=== PATIENT | female | born 1985 | race Caucasian/White ===

== ENCOUNTER 2018-09-01 05:25 | Inpatient (IN) | payer BC ==
[2018-09-01] MEDS ORDERED: Ondansetron PF 4 MG/2 ML Vial IVP PRN ×3 (05:27→08:55)
[2018-09-01] MEDS ORDERED: Promethazine HCl 25 MG/ML VIAL IM PRN ×2 (05:27→08:13)
[2018-09-01] MEDS ORDERED: Butorphanol Tartrate 1 MG/ML VIAL SLOW IVP PRN (05:27)
[2018-09-01] MEDS ORDERED: Bicitra 30 ML UDCUP PO SCH (05:45)
[2018-09-01] MEDS ORDERED: CEFAZOLIN 2 GM/50 ML BAG IVPB SCH (05:45)
[2018-09-01 05:54] VITALS: BMI 34.8
[2018-09-01 06:11] LABS: Mean Corpuscular HGB CONC 34.8 g/dL (32.0-36.0); Mean Corpuscular Hemoglobin 30.2 pg (27.0-31.0); Mean Corpuscular Volume 86.9 fL (78.0-98.0); Mean Platelet Volume 9.7 fL (7.4-10.4); Platelet Count 183 thou/uL (130-400); RBC Distribution Width 12.2 % (11.5-14.5); Red Blood Cell (RBC) Count 4.64 mill/uL (4.20-5.40); White Blood Cell (WBC) Count 7.5 thou/uL (4.8-10.8)
[2018-09-01] MEDS: Lactated Ringer's 1,000 ML IV SCH ×2 (06:20→07:24)
[2018-09-01 07:03] LABS: Syphilis Antibody Nonreactive (Nonreactive); Syphilis Antibody Index 0.06 S/CO (<1.00 Non-Reactive)
[2018-09-01] MEDS ORDERED: Fentanyl 100 MCG/2 ML VIAL ONE (07:13)
[2018-09-01] MEDS ORDERED: Morphine PF 1 MG/ML SYR ONE (07:13)
[2018-09-01] MEDS ORDERED: PHENYLEPHRINE-NS 100 MCG/ML 10 ML SYRINGE ONE ×2 (07:14→16:19)
[2018-09-01] MEDS ORDERED: Oxytocin 10 UNITS/ML VIAL ONE (07:14)
[2018-09-01] MEDS ORDERED: Ketorolac Tromethamine 30 MG/ML VIAL ONE ×2 (07:14→16:19)
[2018-09-01] MEDS ORDERED: Ondansetron PF 4 MG/2 ML Vial ONE ×2 (07:14→16:19)
[2018-09-01] MEDS ORDERED: Dexamethasone 4 mg/ml Vial ONE (07:14)
[2018-09-01] MEDS ORDERED: ePHEDrine/0.9% NaCl/PF SYRINGE 50 mg/10 ml ONE ×2 (07:14→16:19)
[2018-09-01] MEDS ORDERED: Lidocaine 2% PF Inj 2 ML VIAL ONE (07:23)
[2018-09-01] MEDS ORDERED: Naloxone HCl 0.4 mg/ml Vial IVP PRN ×2 (08:13)
[2018-09-01] MEDS ORDERED: L&D-Morphine 4 MG/ML VIAL SLOW IVP PRN (08:13)
[2018-09-01] MEDS ORDERED: Promethazine HCl 25 MG SUPP PR PRN (08:13)
[2018-09-01] MEDS ORDERED: Ketorolac Tromethamine 30 MG/ML VIAL IVP PRN (08:13)
[2018-09-01] MEDS ORDERED: Naloxone HCl 0.4 mg/ml Vial IV PRN (08:13)
[2018-09-01] MEDS ORDERED: HYDROmorphone 2 MG/ML VIAL SLOW IVP PRN (08:13)
[2018-09-01] MEDS ORDERED: Ondansetron HCl/PF 4 MG/2 ML Vial IVP PRN (08:13)
[2018-09-01] MEDS ORDERED: diphenhydrAMINE 50 MG/ML VIAL IVP PRN (08:13)
[2018-09-01] MEDS ORDERED: Eucerin (Mineral Oil/Petrolatum,White) 30 gm Jar TOP PRN (08:13)
[2018-09-01] MEDS ORDERED: Communication Order-Pharmacy FS SCH (08:15)
[2018-09-01] MEDS ORDERED: Ketorolac Tromethamine 30 MG/ML VIAL IVP SCH (08:15)
[2018-09-01] MEDS ORDERED: diphenhydrAMINE 25 MG CAP PO PRN (08:55)
[2018-09-01] MEDS ORDERED: Misoprostol 200 MCG TAB PR PRN (08:55)
[2018-09-01] MEDS ORDERED: Adacel (T-DAP) 0.5 ML SYRINGE IM ONE (08:55)
[2018-09-01] MEDS ORDERED: Lanolin Ointment 7 GM TUBE TOP PRN (08:55)
[2018-09-01] MEDS ORDERED: Acetaminophen 325 MG TAB PO PRN (08:55)
[2018-09-01] MEDS ORDERED: Bisacodyl 10 MG SUPP PR PRN (08:55)
[2018-09-01] MEDS ORDERED: NS / Oxytocin 40 units/1000ml 1,000 ML IV SCH (09:00)
[2018-09-01] MEDS ORDERED: Lactated Ringer's 1,000 ML IV SCH (09:00)
[2018-09-01] MEDS ORDERED: Morphine 4 MG/ML VIAL SLOW IVP PRN (09:10)
[2018-09-01] MEDS: Ferrous Sulfate 325 MG TAB PO SCH (12:27)
[2018-09-01] MEDS: Prenatal Vitamin 1 TAB PO SCH (12:27)
[2018-09-01] MEDS: Docusate Calcium (SURFAK) 240 MG CAP PO SCH (12:27)
[2018-09-01] MEDS: Ibuprofen 800 MG TAB PO SCH (12:27)
--- NOTE | 2018-09-01 15:16 | OP ---
DATE OF PROCEDURE: 09/01/2018 [facility]: 1. Renetta Newton MD. 2. Rajiv Baum MD. PREOPERATIVE DIAGNOSES: 1. Term intrauterine at 39 weeks. 2. Prior section x2. POSTOPERATIVE DIAGNOSES: 1. Term intrauterine at 39 weeks. 2. Prior section x2. PROCEDURE PERFORMED: Repeat low-transverse section. ANESTHESIA: Spinal catheterization. FINDINGS: 1. Minimal scarring and adhesions secondary to previous adhesion prevention measures. 2. Vigorous female , 6 pounds and 15 ounces, Apgars 8 and 9. 3. Normal uterus, tubes, and ovaries. COMPLICATIONS: None. SPECIMENS REMOVED: Cord blood. BLOOD LOSS: Approximately 500 mL. DESCRIPTION OF PROCEDURE: After thorough consent and counseling, Mrs. La was taken to the operating room and adequate level of anesthesia was obtained via spinal catheterization. The patient was prepped and draped in the usual sterile fashion for abdominal surgery. A Emmanuel was placed in the bladder, which was noted to be draining clear urine. Attention was then turned to performing the repeat low-transverse section. A Pfannenstiel incision was made, and the old scar was excised. The incision was carried sharply to the fascia, which was also sharply incised. The midline was identified, and the rectus muscles were retracted laterally. The abdominal peritoneal cavity was entered with the usual safeguards carried out. A retractor was placed, and the bladder flap was created on the vesicouterine peritoneum. A bladder blade was then placed. A low-transverse incision was made on the well-developed lower uterine segment. Upon entering the amniotic sac, copious amount of clear amniotic fluid was visualized. The was noted to be vertex presentation in the occiput transverse position still high in the pelvis. Head was delivered, and baby was bulb suctioned on the abdomen. Nuchal cord x1 and shoulder cord x1 were easily reduced. The cord was doubly clamped and cut. The infant was handed to the Pediatric Team in attendance for the delivery. The was a vigorous viable female, weighing 6 pounds and 15 ounces with Apgars of 8 and 9 obtained at one and five minutes respectively. Cord blood was obtained. The placenta was manually removed from the uterus. The uterus was exteriorized, and good tone was noted. The uterine cavity was cleared of any remaining clot and fluid. The low-transverse incision on the uterus was closed with a running locking ligature of #1 chronic. Several [id number] ligatures of #1 chromic were placed to facilitate strength and hemostasis. The vesicouterine peritoneum was reapproximated to the lower segment with running ligature of 3-0 Monocryl. The posterior cul-de-sac and gutters were cleared of clot and fluid. The uterus, fallopian tubes, and ovaries were carefully inspected and noted to be normal. There were some filmy adhesions in the posterior cul-de-sac to the inferior aspect of the uterus and to the right ovary. Overall, adhesions were much less than the previous delivery secondary to previous adhesion prevention measures. Seprafilm was applied to the low-transverse incision, to the anterior aspect of the uterus and to the fundus of the uterus. The surgical site was carefully inspected, noted to be hemostatic. The bladder was noted to be draining clear urine. The uterus was returned to the abdomen, and good tone and hemostasis were again noted. Lap, sponge, and needle counts were correct. The peritoneum was closed with a running ligature of 2-0 Vicryl. The rectus muscles were reapproximated in the midline with interrupted ligatures of both 2-0 Vicryl and 0 chromic suture. The fascia was then closed with 2 ligatures of 0 Vicryl suture, which were tied in the midline. Good fascial integrity was appreciated. The incision was irrigated with copious amount of warm normal saline. Hemostasis was obtained with Bovie cauterization. The subcutaneous tissue was closed with interrupted ligatures of 2-0 plain. Good hemostasis was again noted. The skin was closed with a subcuticular stitch of 4-0 Monocryl and dressed with Dermabond. Laps, sponge, and needle counts were correct x3. Estimated blood loss during the surgical procedure was approximately 500 mL (QBL equal 450 mL). The patient was taken to the recovery room in good condition. Immediately following the surgery, the patient and family were made aware of the surgical procedure and operative findings. Questions were answered to their satisfaction. Mother and baby were doing well postoperatively. The patient and her were very appreciative of the care rendered here at [facility] this morning. Job ID: [id number]
[2018-09-01 15:18] LABS: HBSAg Index 0.24 S/CO (0-0.99); Hep B Surf Ag Non-Reactive S/CO (NonReactive)
[2018-09-01] MEDS ORDERED: Dexamethasone 20 MG/5 ML VIAL ONE (16:19)
[2018-09-01] MEDS ORDERED: Meperidine HCl/PF 25 MG/ML VIAL IM PRN (18:19)
[2018-09-01] MEDS ORDERED: Zolpidem Tartrate 5 MG TAB PO PRN (18:19)
[2018-09-02] MEDS: Acetaminophen/Codeine 30-300mg Tablet PO PRN ×4 (00:59→18:01)
[2018-09-02] MEDS: Ferrous Sulfate 325 MG TAB PO SCH ×2 (02:21→07:41)
[2018-09-02] MEDS: Ibuprofen 800 MG TAB PO SCH ×4 (02:23→16:41)
[2018-09-02] MEDS: Docusate Calcium (SURFAK) 240 MG CAP PO SCH ×2 (02:23→08:20)
[2018-09-02 06:34] LABS: Mean Corpuscular HGB CONC 32.5 g/dL (32.0-36.0); Mean Corpuscular Hemoglobin 28.8 pg (27.0-31.0); Mean Corpuscular Volume 88.5 fL (78.0-98.0); Mean Platelet Volume 9.8 fL (7.4-10.4); Platelet Count 169 thou/uL (130-400); RBC Distribution Width 12.2 % (11.5-14.5); Red Blood Cell (RBC) Count 4.17 mill/uL (4.20-5.40); White Blood Cell (WBC) Count 7.8 thou/uL (4.8-10.8)
[2018-09-02] MEDS: Prenatal Vitamin 1 TAB PO SCH (08:19)
[2018-09-02] MEDS: Simethicone Chewable 80 MG TAB PO PRN (18:02)
[2018-09-03] MEDS: Ferrous Sulfate 325 MG TAB PO SCH ×2 (00:02→08:09)
[2018-09-03] MEDS: Acetaminophen/Codeine 30-300mg Tablet PO PRN ×3 (00:04→13:07)
[2018-09-03] MEDS: Ibuprofen 800 MG TAB PO SCH ×2 (00:05→07:50)
[2018-09-03] MEDS: Simethicone Chewable 80 MG TAB PO PRN ×2 (00:05→07:50)
[2018-09-03] MEDS: Docusate Calcium (SURFAK) 240 MG CAP PO SCH ×2 (00:05→07:50)
[2018-09-03] MEDS: Prenatal Vitamin 1 TAB PO SCH (07:49)
[2018-09-03 08:14] VITALS: BP 115/79; TEMP 97.6
== END 2018-09-03 14:00 | disposition home or self-care (01) | DRG 788 ==
LOC: L&D 05:25 → 3SW 10:41
PROVIDERS: ADMIT Obstetrics & Gynecology; ATTEND Obstetrics & Gynecology
PROC: 10D00Z1 Extraction of Products of Conception, Low, Open Approach (ICD-10-PCS; principal; 2018-09-01)
PROC: 3E0P05Z Introduction of Adhesion Barrier into Female Reproductive, Open Approach (ICD-10-PCS; 2018-09-01)
DX: O34.211 Maternal care for low transverse scar from previous cesarean delivery (principal); O69.81X0 Labor and delivery complicated by cord around neck, without compression, not applicable or unspecified; O99.89 Other specified diseases and conditions complicating pregnancy, childbirth and the puerperium; N73.6 Female pelvic peritoneal adhesions (postinfective); Z3A.39 39 weeks gestation of pregnancy; Z37.0 Single live birth
CPT/HCPCS: 36415; 51702; 85027; 86780; 86850; 86900; 86901; 87340; J0131; J1100; J1885; J2001; J2274; J2405; J2590; J3010

== ENCOUNTER 2022-04-19 12:44 | Outpatient (CLI) | payer BC | END 2022-04-19 12:45 | disposition home or self-care (01) | LOC: BICMAMMO 12:44 | PROVIDERS: ATTEND Obstetrics & Gynecology | DX: N63.14 Unspecified lump in the right breast, lower inner quadrant (principal) | CPT/HCPCS: 77066; G0279 ==